=== PATIENT | female | born 1980 | race Hispanic/Latino ===

== ENCOUNTER 2017-04-30 06:19 | Day surgery (SDC) | payer BC ==
[2017-04-24 11:46] VITALS: BMI 19.5
[2017-04-30] MEDS ORDERED: Lactated Ringer's 1,000 ML IV ONE ×3 (07:00→12:20)
[2017-04-30 07:25] LABS: HEMOGLOBIN 13.4 g/dL (12.0-16.0); MEAN CELL VOLUME 87.2 fl (81.0-99.0); MEAN CORPUSCULAR HEMOGLOBIN 29.7 pg (27.0-31.0); RBC 4.53 Mil/uL (3.80-5.20); RED CELL DISTRIBUTION WIDTH 13.8 % (11.5-14.5); WHITE BLOOD COUNT 5.3 K/uL (4.8-10.8)
[2017-04-30] MEDS ORDERED: Silver Nitrate Topical - Stick ONE (07:40)
[2017-04-30] MEDS ORDERED: Rocuronium 10 mg/ml (5 ml) ONE (07:42)
[2017-04-30] MEDS ORDERED: ePHEDrine 50 mg/ml Inj ONE ×2 (07:42→08:37)
[2017-04-30] MEDS ORDERED: Lidocaine 4% (Laryng-O-Jet) Kit MM ONE (07:42)
[2017-04-30] MEDS ORDERED: Succinylcholine 200 mg/10 ml Inj IV ONE (07:42)
[2017-04-30] MEDS ORDERED: Propofol 10 mg/ml Inj (20 ML) ONE (07:42)
[2017-04-30] MEDS ORDERED: Phenylephrine 10 mg/ml Inj ONE (07:49)
[2017-04-30] MEDS ORDERED: Neostigmine 1:1000 (1 mg/ml) Inj ONE (07:49)
[2017-04-30] MEDS ORDERED: Midazolam 2 MG/2 ML VIAL ONE (08:20)
[2017-04-30] MEDS ORDERED: Dexamethasone 4 mg/1 ml ONE (08:46)
[2017-04-30] MEDS: Bupivacaine 0.5% Inj(30mL) ONE ×2 (09:00→10:00)
[2017-04-30] MEDS ORDERED: Desflurane Inhalation Anesthetic Liq (240 ml) ONE (09:07)
[2017-04-30] MEDS ORDERED: Sodium Chloride 0.9% 1,000 ML IV ONE (10:00)
[2017-04-30] MEDS ORDERED: DiphenhydrAMINE 50 mg/ml Inj IVP PRN (10:25)
[2017-04-30] MEDS ORDERED: HYDROmorphone 0.5 mg/0.5 ml ISec IVP PRN (10:25)
[2017-04-30] MEDS ORDERED: Lactated Ringer's 1,000 ML IV SCH (10:30)
[2017-04-30] MEDS ORDERED: Oxycodone/Acetaminophen 5/325 mg Tab PO PRN ×2 (10:35→10:37)
[2017-04-30 12:22] VITALS: RESP 20; O2SAT 100
[2017-04-30 14:34] VITALS: BP 109/55; PULSE 69; TEMP 97.6
--- NOTE | 2017-05-06 02:40 | OP ---
PROCEDURE DATE: 05/01/2017 PREOPERATIVE DIAGNOSES: Pelvic pain, dysmenorrhea, dyspareunia, rule out endometriosis. POSTOPERATIVE DIAGNOSES: Pelvic pain, dysmenorrhea, dyspareunia, rule out endometriosis plus pelvic endometriosis, and right hydrosalpinx with appendiceal involvement. PROCEDURE PERFORMED: Cystoscopy with bilateral ureteral catheterization and injection of IC-Green dye, diagnostic hysteroscopy, da Tom robotic laparoscopy, lysis of adhesions, excision of endometriosis, right salpingectomy, right ovariolysis, and ablation of peritoneum. SURGEON: Esvin Juarez MD MIX TECHNICIAN: Willy Palmer MD. COMPLICATIONS: None. ESTIMATED BLOOD LOSS: Minimal. SAMPLES: Multiple samples of peritoneum from the posterior cul-de-sac, posterior cervix, right pelvic side wall, left pelvic side wall, right hydrosalpinx and appendix were sent to pathology. INDICATION FOR THE PROCEDURE: The patient is a 36-year-old female, who presented with symptoms of dysmenorrhea, dyspareunia, and pelvic pain. Examination revealed a mass on the right side of the pelvis with the ovary not being very mobile and some tenderness in that area suspicious for endometriosis. She was counseled with regards to risks and benefits of the procedure and prior to the surgery she signed the consent and she was taken to the OR. DESCRIPTION OF PROCEDURE: After adequate anesthesia was obtained, the patient was placed in a dorsal lithotomy position with extreme care to avoid hyperextending or hyperflexing the legs and every area being extensively padded. At this point, a time-out was taken according to hospital policy and the procedure was started. A cystoscope was inserted into the bladder under direct visualization and the bladder were visualized, appeared to be free of lesions and masses or tumors. Both the ureters were in normal anatomical position. A 5-Mongolian open-ended catheter was inserted into the left ureter and advanced all the way to the distal ureter and 5 mL of IC-Green were then injected. At this point, the catheter was withdrawn and then inserted into the right ureter, all the way to the distal ureter where 5 mL of IC-Green was also injected in that ureter. At this point, the cystoscope was withdrawn and a 16-Mongolian Andujar was inserted into the bladder. At this point, after re-gowning and re-gloving, attention was on the abdominal side, where an open laparoscopy was performed with a standard technique by entering the umbilicus and cutting the fascia sharply and entering the peritoneum in the blunt fashion. At this point, the abdomen was insufflated and the findings were as follows. There was a complex mass involving the appendix, the right fallopian tube which had become hydrosalpinx and stuck to the right ovary as well. There were also implants of endometriosis in the left pelvic side wall, posterior cul-de-sac and posterior cervical area. At this point under direct visualization, three additional ports were inserted, left upper quadrant, right upper quadrant, and left mid quadrant. The [employer] robot was then docked and the procedure was started. Attention was first on the left hand side with an implant of endometriosis was identified. The left ureter was identified utilizing florescent technology and a progressive dissection was performed dissecting the peritoneum containing endometriosis from the left pelvic side wall. All throughout the procedure after lateralizing the ureter was performed without entering the ureter at all. At this point, attention was in the posterior cervix where an area of endometriosis was also dissected off as well in the left cul-de-sac where again in the right and the left perirectal space, areas of endometriosis were excised. At this point, attention was on the right hand side where the mass was evolving the tube, the ovary and the appendix. A full dissection was performed dissecting the appendix which was fully encasing to this mass of adhesion was dissected off. The right fallopian tube was transformed into hydrosalpinx and was covered in adhesions and it was removed utilizing robotic scissors and bipolar energy with using minimal amount of energy possibly in order not to devascularize the ovary. At this point, the appendix was free and appendectomy was performed by General Surgery which will be dictated separately. The right ovary was then elevated, progressively dissected off with a full ovariolysis, and near peritoneum below the ovary was dissected off after identifying the ureter and lateralizing the ureter and performing a dissection of peritoneum. At this point, it was checked for hemostasis, appear to be excellent. Additionally, there was significant of inflammatory tissue on the posterior aspect of the uterus which was ablated utilizing plasma energy in both the posterior aspect of the uterus, the cervix, and the cul-de-sac. At this point, she was checked for hemostasis, appear to be excellent. The pelvis was irrigated. The da [employer] robot was undocked. The instruments were removed after desufflating the abdomen. The incision were closed in layers with 0 PDS for the fascia and 4-0 Monocryl for the skin. At the end of the procedure, all tapes and instruments counts were correct. The patient tolerated the procedure well and was taken to recovery room in excellent condition. Esvin Juarez MD MTDOlinda
== END 2017-04-30 14:50 | disposition home or self-care (01) ==
LOC: H.OPSURG 06:19
PROVIDERS: ATTEND Obstetrics & Gynecology Reproductive Endocrinology
DX: R10.2 Pelvic and perineal pain (principal); E03.9 Hypothyroidism, unspecified; M54.9 Dorsalgia, unspecified
CPT/HCPCS: 36415; 44970; 58563; 58661; 58662; 85027; 86850; 86900; 88304; 88305; C1729; J0330; J0690; J1100; J2001; J2250; J2370; J2405; J2704; J2710; J2765; J3010; J7030; J7040; J7120